=== PATIENT | female | born 1985 | race African-American/Black ===

== ENCOUNTER 2023-07-30 20:01 | Emergency (ER) | payer BC, OTHER ==
[2023-07-30 20:20] VITALS: PULSE 85; TEMP 98.2; BMI 33.2
[2023-07-31 00:15] LABS: EPI CELLS 4 /uL (0-25.1); HYALINE CASTS 1 /uL (0-3.1); PH,URINE 6.5 (5.0-8.0); URINE APPEARANCE CLEAR; URINE BACTERIA 30 /uL (0-1359); URINE BILIRUBIN NEGATIVE (NEGATIVE); URINE COLOR YELLOW; URINE GLUCOSE (UA) NEGATIVE (NEGATIVE); URINE KETONE NEGATIVE (NEGATIVE); URINE LEUK ESTERASE NEGATIVE (NEGATIVE); URINE NITRITE NEGATIVE (NEGATIVE); URINE PROTEIN NEGATIVE (NEGATIVE); URINE RBC 108 /uL (0-23.9); URINE UROBILINOGEN 0.2 mg/dL (0.2-1.0); URINE WBC 3 /uL (0-25.8)
[2023-07-31 01:04] VITALS: BP 137/69; RESP 19
== END 2023-07-31 01:04 | disposition home or self-care (01) ==
LOC: JER 20:01
DX: O20.9 Hemorrhage in early pregnancy, unspecified (principal); Z3A.12 12 weeks gestation of pregnancy
CPT/HCPCS: 36415; 76801-TC; 81003; 84702; 86850; 86900; 86901; 87086; 99284-25

== ENCOUNTER 2024-02-05 06:15 | Inpatient (IN) | payer OTHER ==
[2024-02-05] MEDS: ELECTROLYTE-148 SOLN 500 ML IV ONE (06:45)
[2024-02-05 06:59] VITALS: BMI 36.9
[2024-02-05] MEDS: ELECTROLYTE-148 SOLN 1,000 ML IV SCH ×2 (07:15→11:37)
[2024-02-05] MEDS: CITRIC ACID/SODIUM CITRATE 30 ML UNIT-DOSE CUP PO ONE (08:50)
[2024-02-05] MEDS ORDERED: morphine SULFATE/PF 1 MG/2 ML (2cc Syringe - QUVA) ONE (09:10)
[2024-02-05] MEDS ORDERED: SODIUM CHLORIDE 0.9% P/F 10 ML VIAL IJ ONE (09:11)
[2024-02-05] MEDS ORDERED: ceFAZolin SODIUM 1 GM VIAL ONE (09:11)
[2024-02-05] MEDS ORDERED: LIGASURE IMPACT TP ONE (09:17)
[2024-02-05] MEDS ORDERED: METHYLERGONOVINE MALEATE 0.2 MG/1 ML AMP IM PRN (09:25)
[2024-02-05] MEDS ORDERED: PHENYLEPHRINE HCL 10 MG/1 ML SINGLE DOSE VIAL ONE (09:25)
[2024-02-05] MEDS ORDERED: ACETAMINOPHEN 325 MG TABLET (FP) PO PRN (09:25)
[2024-02-05] MEDS ORDERED: IBUPROFEN 600 MG TABLET (FP) PO PRN (09:25)
[2024-02-05] MEDS ORDERED: OXYTOCIN 10 UNITS/ML VIAL ONE ×2 (09:44→10:18)
[2024-02-05] MEDS ORDERED: ONDANSETRON 4 MG/2 ML VIAL ONE (09:57)
[2024-02-05] MEDS ORDERED: METOCLOPRAMIDE HCL INJECTION 10 MG/2 ML VIAL ONE (09:57)
[2024-02-05] MEDS ORDERED: MIDAZOLAM HCL 2 MG/2 ML SINGLE DOSE VIAL ONE (10:00)
[2024-02-05 11:18] LABS: CORD BASE EXCESS -5.8 mmol/L (0-2); CORD HCO3 20.3 mmHg (20-29); CORD PCO2 42.1 mmHg (30-78); CORD pH 7.301 (7.14-7.44)
[2024-02-05 11:19] LABS: CORD BASE EXCESS -3.7 mmol/L (0-2); CORD HCO3 24.3 mmHg (20-29); CORD PCO2 54.6 mmHg (30-78); CORD pH 7.266 (7.14-7.44)
[2024-02-05] MEDS: CEFAZOLIN SODIUM 2 GM in DEXTROSE 5%-WATER 100 ML IVPB SCH (11:38)
[2024-02-05] MEDS ORDERED: OXYTOCIN 20 UNITS in 0.9% NS 20 UNIT/1,000 ML INFUS.BAG IV ONE (12:08)
[2024-02-05] MEDS: OXYTOCIN 20 UNITS in 0.9% NS 20 UNIT/1,000 ML INFUS.BAG IV SCH (12:10)
[2024-02-05] MEDS: ACETAMINOPHEN 1000 MG/100 ML BAG IVPB PRN (13:51)
[2024-02-05] MEDS: ONDANSETRON 4 MG/2 ML VIAL IVPUSH PRN (17:07)
[2024-02-05] MEDS ORDERED: oxyCODONE HCL 5 MG TABLET PO PRN (21:25)
[2024-02-05] MEDS: morphine SULFATE/PF 1 MG/2 ML (2cc Syringe - QUVA) EP ONE (22:00)
[2024-02-06] MEDS: IBUPROFEN 800 MG/8 ML IJ IVPB PRN (02:04)
[2024-02-06 08:55] LABS: BASO % 0.2 % (0-2.0); EOS % 0.9 % (0-4.5); HEMATOCRIT 37.2 % (32.4-45.2); HEMOGLOBIN 12.2 GM/dL (10.7-15.3); LYMPH % 7.7 % (8-40); MCH 24.9 pg (25.7-33.7); MCHC 32.8 g/dl (32.0-36.0); MEAN CELL VOLUME 76.1 fl (80-96); MEAN PLT VOLUME 8.1 fl (7.5-11.1); MONO % 6.1 % (3.8-10.2); NEUT % 85.1 % (42.8-82.8); PLATELET COUNT 148 10^3/uL (134-434); RBC 4.89 M/mm3 (3.60-5.2); RDW 17.6 % (11.6-15.6); WHITE BLOOD COUNT 14.1 K/mm3 (4.0-10.0)
[2024-02-06] MEDS: ENOXAPARIN NA (PORCINE) 40 MG/0.4 ML DISP.SYRIN SQ SCH (10:17)
[2024-02-06] MEDS: ACETAMINOPHEN 325 MG TABLET (FP) PO PRN (15:45)
[2024-02-06 16:12] VITALS: RESP 18
[2024-02-06] MEDS: SIMETHICONE 80 MG TAB.CHEW (FP) PO PRN (21:32)
[2024-02-07 08:44] LABS: BASO % 0.4 % (0-2.0); HEMATOCRIT 38.6 % (32.4-45.2); HEMOGLOBIN 12.4 GM/dL (10.7-15.3); LYMPH % 9.4 % (8-40); MCH 24.7 pg (25.7-33.7); MCHC 32.1 g/dl (32.0-36.0); MEAN CELL VOLUME 77.1 fl (80-96); MEAN PLT VOLUME 8.1 fl (7.5-11.1); MONO % 7.5 % (3.8-10.2); NEUT % 81.7 % (42.8-82.8); PLATELET COUNT 161 10^3/uL (134-434); RDW 17.7 % (11.6-15.6)
[2024-02-07] MEDS: BISACODYL 10 MG SUPP.RECT RC PRN (09:37)
[2024-02-07] MEDS: IBUPROFEN 600 MG TABLET (FP) PO PRN (13:28)
[2024-02-08 10:08] LABS: BASO % 0.4 % (0-2.0); EOS % 2.8 % (0-4.5); HEMOGLOBIN 12.4 GM/dL (10.7-15.3); LYMPH % 15.7 % (8-40); MCH 25.4 pg (25.7-33.7); MCHC 32.7 g/dl (32.0-36.0); MEAN CELL VOLUME 77.6 fl (80-96); MEAN PLT VOLUME 8.1 fl (7.5-11.1); NEUT % 76.1 % (42.8-82.8); PLATELET COUNT 196 10^3/uL (134-434); RBC 4.89 M/mm3 (3.60-5.2); RDW 17.8 % (11.6-15.6); WHITE BLOOD COUNT 9.9 K/mm3 (4.0-10.0)
[2024-02-08 10:45] VITALS: BP 108/71; PULSE 83; TEMP 98.7
== END 2024-02-08 14:10 | disposition home or self-care (01) | DRG 785 ==
LOC: JLDR 06:15 → J3W 13:26
PROVIDERS: ADMIT Obstetrics & Gynecology; ATTEND Obstetrics & Gynecology
PROC: 10D00Z1 Extraction of Products of Conception, Low, Open Approach (ICD-10-PCS; principal; 2024-02-05)
PROC: 0UB70ZZ Excision of Bilateral Fallopian Tubes, Open Approach (ICD-10-PCS; 2024-02-05)
DX: O34.211 Maternal care for low transverse scar from previous cesarean delivery (principal); N85.8 Other specified noninflammatory disorders of uterus; Z3A.39 39 weeks gestation of pregnancy; Z30.2 Encounter for sterilization; Z37.0 Single live birth
CPT/HCPCS: 36415; 36600; 59409; 82803; 85025; 88305-TC; 88307-TC; 94010; J0131